=== PATIENT | male | born 1940 | race Caucasian/White ===

== ENCOUNTER 2020-05-08 14:19 | Outpatient (CLI) | payer MEDICARE, OTHER, SELFPAY ==
--- NOTE | ~2020-05-08 | CT_ITS ---
EXAMINATION: CT abdomen pelvis w con DATE: 05/08/2020 15:45 INDICATION: Abdominal pain. Diarrhea. TECHNIQUE: Computed tomography (CT) of the abdomen and pelvis was performed with 100 mL Omnipaque 350 intravenous contrast. Automated exposure control and iterative reconstruction technique were employe d. The dose-length product was 1072.26 mGy-cm. COMPARISON: Chest CT 10/14/2012 FINDINGS: The visualized portions of the lung bases demonstrate mild atelectasis. No pleural effusion . The heart size is normal. There are coronary artery calcifications. No pericardial effusion. There are cysts in the liver measuring up to 12 mm. The gallbladder, spleen, and adrenal glands are normal. There is a chronic 11 mm hyperenhancing mass in the tail of the pancreas, likely an accessory spleen . Right kidney is normal. There is a chronic 7 mm mass in the left kidney, likely benign. There are c hanges of prostatectomy and pelvic lymph node dissection. There is diverticulosis of the colon withou t evidence of diverticulitis. The appendix is not visualized. 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 There are no pathologically enlarged lymph nodes. There is no free intraperitoneal fluid. There is moderate thoracal lumbar spondylosis. IMPRESSION: 1. 5.1 cm saccular aneurysm of infrarenal aorta. Surgical consultation is recommended. Reviewed, dictated and finalized at location A. IMPRESSION: 1. 5.1 cm saccular aneurysm of infrarenal aorta. Surgical consultation is recom mended.
[2020-05-08 14:53] LABS: Basophils Percent Auto 0.7 % (0.2-1.2); Eosinophils Absolute Auto 0.2 K/mm3 (0-0.3); Eosinophils Percent Auto 3.3 % (0-4.4); Hematocrit 47.1 % (42.0-52.0); Hemoglobin 15.4 g/dL (14.0-18.0); Immature Granulocyte Absolute 0.01 K/mm3 (0.00-0.031); Immature Granulocyte Percent A 0.2 % (0-0.5); Lymphocytes Absolute Auto 1.03 K/mm3 (0.9-3.2); Lymphocytes Percent Auto 22.8 % (18.3-44.2); Mean Corpuscular HGB Conc 32.7 g/dl (32-36); Mean Corpuscular Hemoglobin 29.6 pg (26-34); Mean Corpuscular Volume 90.6 fl (80-100); Mean Platelet Volume 10.2 fl (7.4-10.4); Monocytes Absolute Auto 0.7 K/mm3 (0.1-0.6); Neutrophils Absolute Auto 2.6 K/mm3 (1.3-6.7); Platelet Count Result 186 k/mm3 (150-375); Red Cell Distribution Width 12.5 % (11.5-14.5); White Blood Count 4.5 K/mm3 (4.5-10.0)
[2020-05-08 15:07] LABS: Alanine Aminotransferase 34 U/L (4-50); Albumin Level 4.4 g/dL (3.5-5.1); Alkaline Phosphatase 59 U/L (38-126); Aspartate Amino Transferase 26 U/L (17-59); Bilirubin,Total 0.4 mg/dL (0.2-1.3); Blood Urea Nitrogen 15 mg/dL (9-20); Calcium 9.1 mg/dL (8.4-10.2); Carbon Dioxide 25 mmol/L (22-30); Chloride 105 mmol/L (98-107); Estimated Glomerular Filt Rate > 60; Glucose 104 mg/dL (75-110); Potassium 4.3 mmol/L (3.4-5.0); Sodium 138 mmol/L (137-145)
== END 2020-05-08 14:20 | disposition home or self-care (01) ==
LOC: ANHIMG 14:22
PROVIDERS: PCP Internal Medicine; Visit Provider Internal Medicine
DX: R19.7 Diarrhea, unspecified (principal); R10.9 Unspecified abdominal pain
CPT/HCPCS: 36415; 74177; 80053; 85025; Q9967

== ENCOUNTER 2020-05-10 10:12 | Outpatient (CLI) | payer MEDICARE, OTHER, SELFPAY | END 2020-05-10 10:13 | disposition home or self-care (01) | PROVIDERS: PCP Internal Medicine; Visit Provider Internal Medicine | DX: R19.7 Diarrhea, unspecified (principal) | CPT/HCPCS: 87045; 87046; 87177; 87209; 87324; 87427; 89055 ==

== ENCOUNTER 2021-01-28 09:34 | Outpatient (CLI) | payer MEDICARE, SELFPAY ==
--- NOTE | ~2021-01-28 | US_ITS ---
US abdomen limited DATE: 01/28/2021 10:49 INDICATION: Pancreatic cyst. Kidney cyst. TECHNIQUE: Real-time imaging of liver, pancreas, gallbladder areas COMPARISON: 05/08/2020 CT abdomen pelvis FINDINGS: A chronic 11 mm hyperenhancing mass was reported in the tail of the pancreas on the 05/08/20 CT abdomen pelvis examination. No pancreatic mass lesion or cyst is detected sonographically. Consider pancreatic AP examination wit h IV contrast material and comparison to 05/08/2020 CT abdomen examination. No hepatic space-occupying mass lesion. Normal hepatopedal portal venous flow direction. No gallstones, gallbladder wall thickening or abnormal pericholecystic fluid collection is detected. Negative sonographic Burciaga's sign. IMPRESSION: No significant abnormality Consider repeat CT pancreas examination with IV contrast material and comparison to the 05/08/2020 CT abdomen pelvis examination which revealed a reported chronic 11 mm hyperenhancing mass Reviewed, dictated and finalized at Location A. Reviewed, dictated and finalized at location A. IMPRESSION: No significant abnormality Consider repeat CT pancreas examination with IV contrast material and compariso n to the 05/08/2020 CT abdomen pelvis examination which revealed a reported tailer out yady 11 mm hyperenhancing mass
--- NOTE | ~2021-01-28 | US_ITS ---
US renal BI DATE: 01/28/2021 10:49 INDICATION: Kidney cyst TECHNIQUE: Real-time imaging of kidneys and urinary bladder COMPARISON: 05/08/2020 CT abdomen pelvis FINDINGS: The right kidney measures approximately 11.2 cm length, the left kidney approximately 11.8 cm length. No hydronephrosis of either kidney. 1.2 x 1 x 2 centimeter left parapelvic renal cyst. The urinary bladder is unremarkable. IMPRESSION: 1.2 x 1 x 2 centimeter left parapelvic renal cyst Reviewed, dictated and finalized at Location A. Reviewed, dictated and finalized at location A.
== END 2021-01-28 09:35 | disposition home or self-care (01) ==
PROVIDERS: PCP Internal Medicine; Visit Provider Internal Medicine
DX: N28.1 Cyst of kidney, acquired (principal); K86.2 Cyst of pancreas
CPT/HCPCS: 76705; 76775

== ENCOUNTER 2021-08-27 13:57 | Outpatient (CLI) | payer MEDICARE, SELFPAY ==
--- NOTE | ~2021-08-27 | US_ITS ---
EXAMINATION: US arterial ankle brachial ind DATE: 08/27/2021 14:39 INDICATION: Peripheral arterial disease TECHNIQUE: Segmental pressures and plethysmographic and Doppler waveforms of the brachial and lower e xtremity arteries were obtained. COMPARISON: None. FINDINGS: Right and left brachial artery pressures of 146 mm Hg and 144 mm Hg, respectively, are concordant (no rmal difference <= 30 mmHg). The right ankle-brachial index (CRISTIAN) is 1.27 (normal >= 0.9-1.0). The right great toe-brachial index (TBI) is 0.93 (normal >= 0.65). Arterial Doppler waveforms are biphasic at the posterior tibial arter y and low amplitude and monophasic at the dorsalis pedis artery. The left CRISTIAN is 1.27. The left TBI is 0.69. Arterial Doppler waveforms are biphasic at the left poste rior tibial artery and low amplitude monophasic at the dorsalis pedis artery. IMPRESSION: Normal bilateral CRISTIAN and TBI Reviewed, dictated and finalized at Location A. Reviewed, dictated and finalized at location A.
== END 2021-08-27 13:58 | disposition home or self-care (01) ==
LOC: ANHIMG 14:02
PROVIDERS: PCP Internal Medicine; Visit Provider Internal Medicine
DX: R09.89 Other specified symptoms and signs involving the circulatory and respiratory systems (principal)
CPT/HCPCS: 93922

== ENCOUNTER 2022-02-21 12:18 | Outpatient (CLI) | payer MEDICARE, SELFPAY ==
--- NOTE | ~2022-02-21 | PE_ITS ---
EXAMINATION: PET skull to mid thigh DATE: 02/21/2022 15:00 INDICATION: Solitary pulmonary nodule TECHNIQUE: Blood glucose level was 102 mg/dL. 10.71 mCi of 18-fluorodeoxyglucose (18-FDG) was adminis tered i.v. Low dose computed tomography (CT) images were acquired from the base of the brain to the p roximal thighs for attenuation correction and anatomic localization. Positron emission tomography (PE T) images were acquired in the same distribution beginning 106 minutes after injection. Images includ ing fused PET/CT images were reconstructed in axial, coronal, and sagittal planes. Automated exposure control technique was employed. The dose-length product was 922.62mGy-cm. COMPARISON: CT abdomen and pelvis dated 05/08/2020 FINDINGS: Head/neck: There is symmetric increased activity in the oral cavity, palatine tonsils, laryngeal muscles and ocu lar muscles without CT correlate, likely physiologic. Atherosclerotic calcification at the bilateral carotid bulbs. No pathologically enlarged cervical lymphadenopathy or suspicious foci of increased FD G uptake in the visualized head or neck. Chest: Unchanged discoid atelectasis/scarring along the posterior lingula. There is pleural thickening and i ncreased subpleural fat with stable appearance of associated round atelectasis in the lateral basilar segment of the right lower lobe which is without corresponding FDG uptake. There is also no FDG upta ke associated with a 12 mm nodule at the posterior basilar segment of the right lower lobe. 3 mm and 5 mm para fissural nodules in the superior segment of the left lower lobe without evident FDG uptake. There is mild FDG uptake with maximal SUV of 3.2 at the right hilum likely related to a lymph node s ituated amongst and unable to be discreetly distinguish from the surrounding pulmonary vasculature. A dditional increased uptake with maximal SUV of 4.3 associated with a mediastinal lymph node situated posterior to the right main pulmonary artery into the right of the esophagus which measures 8 mm in m aximal short axis diameter which is normal. No other pathologically enlarged or FDG avid thoracic lym phadenopathy. Cardiomegaly. Atherosclerotic coronary artery calcification. Enlargement of the central pulmonary arteries consistent with pulmonary arterial hypertension. Thoracic aorta is normal in sandy hellen. Abdomen/pelvis/proximal thighs: Physiologic renal accumulation and excretion of FDG activity in the kidneys, bladder and along portio ns of ureters. 1.3 cm cyst at the caudate lobe of the liver. Normal degree and heterogenous pattern o f increased uptake throughout the liver without radiologic correlate or dominant FDG avid lesion. The gallbladder, spleen and bilateral adrenal glands are normal. Diffuse mild fatty atrophy of the pancr eas. There is mild colonic diverticulosis with a sigmoid predominance. There is no adjacent inflammat ory change to suggest diverticulitis. Mild uptake scattered throughout the bowels without radiologic correlate, also likely physiologic. No other abnormal foci of increased FDG uptake or pathologically enlarged lymphadenopathy in the abdomen, pelvis or proximal thighs. Mild aortobiiliac endoluminal michela nt spanning an unchanged 5.1 x 3.7 cm saccular aneurysm extending left posteriorly from the aortic bi furcation. Postoperative changes and pelvis prior prostatectomy and bilateral pelvic lymph node disse ction. Musculoskeletal: Moderate cervical, thoracic and lumbar spondylosis with bridging osteophytes at multiple levels in th e thoracic and lumbar spine consistent with diffuse idiopathic skeletal hyperostosis (DISH). No suspi cious lytic, blastic or FDG avid bone lesions. IMPRESSION: 1. No abnormal FDG uptake associated with a new 12 mm right lower lobe nodule or of a couple 3 and 5 mm left lower lobe nodules. While reassuring would recommend six-month follow-up chest CT. 2. No FDG u
[2022-02-21 12:35] LABS: Glucose Point of Care 102 mg/dl (65-105)
== END 2022-02-21 12:19 | disposition home or self-care (01) ==
LOC: ANHIMG 12:19
PROVIDERS: PCP Internal Medicine; Visit Provider Internal Medicine
DX: R91.1 Solitary pulmonary nodule (principal)
CPT/HCPCS: 78815; A9552

== ENCOUNTER 2022-08-27 10:19 | Outpatient (CLI) | payer MEDICARE, SELFPAY ==
--- NOTE | ~2022-08-27 | CT_ITS ---
EXAMINATION:CT diagnostic chest w con DATE: 08/27/2022 10:44 INDICATION: Pulmonary nodule. TECHNIQUE: Computed tomography (CT) of the chest was performed with 75 mL Omnipaque 350 intravenous c ontrast. Automated exposure control and iterative reconstruction technique were employed. The dose-le ngth product (DLP) was 384.66 mGy-cm. COMPARISON: PET CT 02/21/2022, chest CT 10/14/2012 FINDINGS: There is mild bronchiectasis in the inferior lungs. There is mild atelectasis in the inferi or lungs. There is a 13 mm nodule in right lower lobe containing fat, consistent with a hamartoma. Th ere is a 5 mm nodule in right lower lobe, stable from 10/14/2012, likely benign. No pleural effusion. Cardiomegaly is noted. There are coronary artery calcifications. No pericardial effusion. There is a 12 mm cyst in the liver. There is a stent graft in abdominal aorta. There is severe cervical spondyl osis. There are bridging endplate osteophytes at multiple levels in the thoracic spine, consistent wi th diffuse idiopathic skeletal hyperostosis (DISH). IMPRESSION: 1. 13 mm right lower lobe pulmonary nodule containing fat, stable from 02/21/2022 and without increase d activity on prior PET, consistent with a hamartoma. Reviewed, dictated and finalized at location A. IMPRESSION: 1. 13 mm right lower lobe pulmonary nodule containing fat, stable from 2 and without increased activity on prior PET, consistent with a hamartoma.
[2022-08-27 10:39] LABS: Estimated Glomerular Filt Rate > 60
== END 2022-08-27 10:20 | disposition home or self-care (01) ==
PROVIDERS: PCP Internal Medicine; Visit Provider Internal Medicine
DX: R91.1 Solitary pulmonary nodule (principal)
CPT/HCPCS: 71260; Q9967

== ENCOUNTER 2022-11-26 14:07 | Outpatient (CLI) | payer MEDICARE, SELFPAY ==
--- NOTE | ~2022-11-26 | US_ITS ---
EXAMINATION: US arterial ankle brachial ind DATE: 11/26/2022 14:48 INDICATION: Decreased pedal pulses TECHNIQUE: Segmental pressures and plethysmographic and Doppler waveforms of the brachial and lower e xtremity arteries were obtained. COMPARISON: None. FINDINGS: Right and left brachial artery pressures of 175 mm Hg and 161 mm Hg, respectively, are concordant (no rmal difference <= 30 mmHg). The right ankle-brachial index (CRISTIAN) is 0.96 (normal >= 0.9-1.0). The right great toe-brachial index (TBI) is 0.63 (normal >= 0.65). Arterial Doppler waveforms are biphasic with brisk systolic upstrokes at both right posterior tibial and dorsalis pedis arteries. The left CRISTIAN is 0.90. The left TBI is 0.41. Arterial Doppler waveforms are biphasic with brisk systol ic upstrokes at both left posterior tibial and dorsalis pedis arteries. IMPRESSION: 1. Arterial occlusive disease to bilateral lower limbs with borderline right CRISTIAN and TBI and borderli ne left CRISTIAN and mildly decreased left TBI. Reviewed, dictated and finalized at location A. ESHER IMPRESSION: 1. Arterial occlusive disease to bilateral lower limbs with borderline right AB I and TBI and borderline left CRISTIAN and mildly decreased left TBI.
== END 2022-11-26 14:08 | disposition home or self-care (01) ==
PROVIDERS: PCP Internal Medicine; Visit Provider Orthopaedic Surgery
DX: R09.89 Other specified symptoms and signs involving the circulatory and respiratory systems (principal); I70.203 Unspecified atherosclerosis of native arteries of extremities, bilateral legs
CPT/HCPCS: 93922

== ENCOUNTER 2022-11-28 11:23 | Outpatient (CLI) | payer MEDICARE, SELFPAY ==
--- NOTE | 2022-11-28 11:47 | ECG_ITS ---
Measurements Intervals Powell Rate: 57 P: 44 WY: 248 QRS: 14 QRSD: 109 T: 34 QT: 427 QTc: 417 Interpretive Statements SINUS BRADYCARDIA WITH FIRST DEGREE AV BLOCK LEFT VENTRICULAR HYPERTROPHY ABNORMAL ECG NO PREVIOUS ECG AVAILABLE FOR COMPARISON Electronically Signed On 11-28-2022 14:01:37 REFRIGERATOR REPAIR TECHNICIAN by Jason Alexis M.D.
== END 2022-11-28 11:24 | disposition home or self-care (01) ==
PROVIDERS: PCP Internal Medicine; Visit Provider Surgery
DX: I10 Essential (primary) hypertension (principal); Z01.818 Encounter for other preprocedural examination; I44.0 Atrioventricular block, first degree
CPT/HCPCS: 93005

== ENCOUNTER 2022-11-29 02:06 | Day surgery (SDC) | payer MEDICARE, SELFPAY ==
[2022-11-27 14:42] VITALS: BMI 30.7
--- NOTE | 2022-11-27 14:56 | PC.NURSE ---
PRE-OP INSTRUCTIONS, PLEASE READ CAREFULLY Report to the Outpatient Waiting Room, entrance under the green pavilion located off [facility], at time _0930_ on date _11/29/22_. Planned Procedure Time: _1130_. Time changes happen often and if your time is changed the preop area will call you the afternoon before. - You and your visitor will be asked to self-screen and do not enter if you have any COVID symptoms. - Only one visitor is requested with a max of two and NO children visitors are allowed at this time. - The patient visitor may be requested to leave or wait in car when not with patient due to distancing restrictions. - A mask is optional within the hospital at this time. Patients may have clear liquids (water, carbonated beverages, clear teas, apple juice) until 3 hours prior to surgery (0830 AM) with a maximum of 20 ounces. - No food from midnight until time of surgery Take the following medications with a SIP of water the morning of surgery: _BUPROPION, VERAPAMIL, TYLENOL IF NEEDED_ DO NOT STOP ANY OF YOUR OTHER PRESCRIPTION MEDICATIONS PRIOR TO SURGERY ?EXCEPT THE FOLLOWING Medications to discontinue per ANESTHESIA - _OMEGA 3, PRESERVISION OF TODAY, Date to take last dose 11/27/22_ Please no make-up, nail albanian, hairspray, perfume, deodorant, or body powder the day of surgery. No jewelry (including any body piercings) or valuables the day of surgery, leave them at home. Please take a shower or bath the night before, or the morning of, surgery with an antibacterial soap. Wear comfortable, loose fitting clothing. - Jewelry must be removed prior to entering the operating room. Rings and piercings that are not removed may be cut off. - The hospital will not accept responsibility for valuables. - Please leave all valuables, including medications, at home the day of surgery. If you are going home after surgery, a licensed day haul or farm charter bus driver must drive you home. - NO public transportation without another adult if you receive anesthesia. - We recommend that an adult stay with you for 24 hours following discharge. - We also recommend that you do not drive, make important decision, drink alcoholic beverages, or take any drugs that were not prescribed by your health care provider for at least 24 hours after your discharge time. Follow any additional instructions given to you from your surgeon. If you or anyone in your household have experienced Covid symptoms in the past week, please notify your surgeon or the nurse liaison at the phone number below for possible testing. Telephone instructions given to _PATIENT_and asked if any additional questions and then verbalized understanding. Patient advised to call surgeon office or pre surgery nurse liaison [phone] if any additional questions.
[2022-11-29] MEDS: LACTATED RINGERS 1,000 ML 30 ML IV CONT (10:00)
[2022-11-29 10:25] VITALS: BP 159/74; PULSE 64; RESP 16; TEMP 36.2; O2SAT 98
[2022-11-29] MEDS: ACETAMINOPHEN 500 MG TABLET 1000 MG PO (10:30)
[2022-11-29] MEDS: KETOROLAC 15 MG/ML VIAL (*BKC) IV PUSH (10:30)
--- NOTE | 2022-11-29 10:41 | WPDHPUPDATE1 ---
History and Physical Update Update Date/Time: 11/29/22 10:41 History and Physical has been reviewed, including an updated exam of the patient. There are NO changes in the patient's condition. Risks, benefits, and alternatives have been discussed and questions answered. Patient agrees to proceed with procedure.
--- NOTE | 2022-11-29 10:50 | WPDANESEPPF ---
Anes - Initial Pre Proc Eval Procedure: Operation Date: 11/29/22 11:30 Proposed Procedures p Rectal Exam Under Anesthesia, Hemorrhoidectomy - Kimberly Gonsalez MD Date/Time: 11/29/22 10:50 Surgeon: Kimberly Gonsalez MD Pre Op Diagnosis: thrombosed external hemorrhoid Patient Data Age: 81 Gender: M Height: 1.8 m Weight: 99.1 kg Last Vital Signs Temp 36.2 C L 11/29/22 10:25 Pulse 64 11/29/22 10:25 Resp 16 11/29/22 10:25 BP 159/74 H 11/29/22 10:25 Pulse Ox 98 11/29/22 10:25 O2 Del Method Room Air 11/29/22 10:25 Allergies Allergy/AdvReac Type Severity Reaction Status Date / Time shrimp Allergy Vomiting Verified 11/29/22 10:26 Home Medications Medication Instructions Recorded Confirmed Type aspirin 81 mg tablet,delayed 81 mg PO DAILY 10/14/19 11/27/22 History release (Adult Low Dose Aspirin) vit C 250 mg-vit E 90 mg-zinc 40 1 tablet PO BID 10/14/19 11/27/22 History mg-copper 1 dl-[id number] capsule (PreserVision AREDS-2) cholecalciferol (vitamin D3) 25 25 mcg PO DAILY 06/06/20 11/27/22 History mcg (1,000 unit) capsule calcium carbonate 600 mg-vitamin 1 tablet PO DAILY 12/20/20 11/27/22 History D3 20 mcg (800 unit) chewable tablet (Caltrate 600 plus D) primidone 50 mg tablet See Rx Instructions .Route 10/29/21 11/27/22 Rx .COMPLEX #540 tabs atorvastatin 20 mg tablet See Rx Instructions .Route 01/22/22 11/27/22 Rx .COMPLEX #90 tabs trandolapril 4 mg tablet See Rx Instructions .Route 01/22/22 11/27/22 Rx .COMPLEX #90 tabs bupropion HCl 150 mg 24 hr tablet, See Rx Instructions .Route 08/12/22 11/29/22 Rx extended release .COMPLEX #90 tabs omega-3 fatty acids 1,000 mg 2,000 mg PO BID 10/14/22 11/27/22 History capsule (Fish Oil Concentrate) verapamil 240 mg tablet,extended See Rx Instructions .Route 11/20/22 11/29/22 Rx release .COMPLEX #180 tabs acetaminophen 500 mg tablet 500 mg PO TID PRN Pain 11/27/22 11/29/22 History hydrocortisone 2.5 % topical cream 1 applic RECTAL DAILY PRN 11/27/22 11/27/22 Rx with perineal applicator hemorrhoids #30 grams (Anusol-HC) Patient hx anesthesia problems: none Family hx anesthesia problems: none Results Review: All pre-operative results and documents have been reviewed as part of the pre-operative evaluation. [facility] Past Medical History Medical History Abdominal pain Benign essential hypertension Blackhead BMI 30.0-30.9,adult BMI 31.0-31.9,adult BMI 33.0-33.9,adult BMI 34.0-34.9,adult Branch retinal artery occlusion of both eyes Chest pain COPD (chronic obstructive pulmonary disease) Decreased pedal pulses Degenerative arthritis of knee, bilateral DJD (degenerative joint disease), multiple sites Double vision Encounter for Medicare annual wellness exam Encounter for routine adult health examination without abnormal findings History of abdominal aortic aneurysm (AAA) History of prostate cancer Hx of TIA (transient ischemic attack) and stroke Hyperglycemia, unspecified Hyperlipidemia Lung nodule On senior care drug therapy Resting tremor Thrombosed hemorrhoids Tremor Vitamin B12 deficiency Vitamin D deficiency Surgical History Surgical History AAA (abdominal aortic aneurysm) Treated with graft in 2020 History of heart artery stent History of prostate surgery 1999 Family History Family History Father Family history of coronary artery disease Family history of malignant neoplasm of urinary bladder Grandparent Family history of coronary artery disease Social History Social History Smoking packs per day: 2 Smoking cigarettes per day: 40.0 Years smoked: 30 Smoking pack-years: 60.00 Smoking status: Former smoker Tobacco type: cigarettes Second hand tobacco
[2022-11-29] MEDS: ceFAZolin 2 GM/D5W 50 ML 2 GM/50 ML BAG IVPB (11:41)
[2022-11-29] MEDS: LIDOCAINE HCL 1% PF 30 ML VIAL INFILTRATE (12:04)
[2022-11-29 12:10] VITALS: BP 98/57; PULSE 51; RESP 14; O2SAT 98
--- NOTE | 2022-11-29 12:10 | W.PM.PROC2 ---
Procedure Note - Detailed Date of Procedure 11/29/22 Pre-op Diagnosis thrombosed external hemorrhoids Post-op Diagnosis Same Procedure Performed Exam under anesthesia, external hemorrhoidectomy involving left lateral and right anterior positions Surgeon Kimberly Gonsalez MD Anesthesia MAC and Local Indications 81 y/o M c multiple thrombosed external hemorrhoids refractory to conservative measures. Findings multiple thromabosed external hemorrhoids predominately in L lateral and R anterior Description of Procedure The patient was taken to the operating room and placed in the modified lithotomy position. After adequate induction of general anesthesia, the patient was prepped and draped in the normal sterile fashion. A time-out was then done to verify the patient's identity, as well as the procedure being performed. I began by doing a digital exam. There was noted to be multiple external hemorrhoids, however no internal hemorrhoids were noted. At this point, a bilateral pudendal block was done. Then used the lone Star retractor to further evaluate the anal canal as well as rectum, other than external hemorrhoids no other pathology was noted. I then began excising the external hemorrhoids using the hand-held LigaSure device. The hemorrhoids were noted to be in the left lateral and right anterior positions. The largest thrombosed hemorrhoid was in the left lateral column. Two smaller thrombosed hemorrhoids were excised from the R anterior column using the LigaSure. The specimens will be sent to pathology for further review. Hemostasis was noted at all excision sites. I then placed lidocaine jelly into the rectal vault. The patient tolerated the procedure and was alert and awake in the operating room postop. He will be transferred to the recovery room in stable condition. Implants lidocaine jelly in the rectal vault Estimated Blood Loss 5 Drains No Packing Yes Pathology Yes Complications No immediate complications Condition Stable Disposition PACU [facility] Billing Surgery - Charge Forward: Surgery Billing
[2022-11-29 12:40] VITALS: BP 130/63; PULSE 52; RESP 18; O2SAT 96
[2022-11-29 13:10] VITALS: BP 155/73; PULSE 52; RESP 16
[2022-11-29 13:33] VITALS: BP 162/75; PULSE 52
[2022-11-29 14:00] VITALS: BP 160/80; PULSE 51; RESP 16
== END 2022-11-29 14:10 | disposition home or self-care (01) ==
PROVIDERS: PCP Internal Medicine; Visit Provider Surgery
PROC: (CPT 46320; principal; 2022-11-29 11:30)
DX: K64.5 Perianal venous thrombosis (principal); I10 Essential (primary) hypertension; J44.9 Chronic obstructive pulmonary disease, unspecified; E78.5 Hyperlipidemia, unspecified; E55.9 Vitamin D deficiency, unspecified; E53.8 Deficiency of other specified B group vitamins; Z86.73 Personal history of transient ischemic attack (TIA), and cerebral infarction without residual deficits; Z85.46 Personal history of malignant neoplasm of prostate; Z79.82 Long term (current) use of aspirin; Z95.5 Presence of coronary angioplasty implant and graft; Z87.891 Personal history of nicotine dependence; E66.9 Obesity, unspecified; Z68.30 Body mass index [BMI] 30.0-30.9, adult
CPT/HCPCS: 46320 ×2; 88304; A9270; J0690; J1885; J2704; J3010; J7120

== ENCOUNTER 2023-03-10 14:26 | Outpatient (CLI) | payer MEDICARE, SELFPAY ==
[2023-03-10 14:51] LABS: Basophils Percent Auto 0.7 % (0.2-1.2); Eosinophils Absolute Auto 0.5 K/mm3 (0-0.3); Eosinophils Percent Auto 9.2 % (0-4.4); Hematocrit 43.6 % (42.0-52.0); Hemoglobin 14.7 g/dL (14.0-18.0); Immature Granulocyte Absolute 0.01 K/mm3 (0.00-0.031); Immature Granulocyte Percent A 0.2 % (0-0.5); Lymphocytes Absolute Auto 1.62 K/mm3 (0.9-3.2); Lymphocytes Percent Auto 29.9 % (18.3-44.2); Mean Corpuscular HGB Conc 33.7 g/dl (32-36); Mean Corpuscular Hemoglobin 30.8 pg (26-34); Mean Corpuscular Volume 91.4 fl (80-100); Mean Platelet Volume 9.9 fl (7.4-10.4); Monocytes Absolute Auto 0.6 K/mm3 (0.1-0.6); Monocytes Percent Auto 11.3 % (2.6-8.5); Neutrophils Absolute Auto 2.6 K/mm3 (1.3-6.7); Neutrophils Percent Auto 48.7 % (45.5-73.1); Platelet Count Result 174 k/mm3 (150-375); Red Blood Count 4.77 M/mm3 (4.6-6.20); Red Cell Distribution Width 13.2 % (11.5-14.5); White Blood Count 5.4 K/mm3 (4.5-10.0)
[2023-03-10 15:08] LABS: Prothrombin Time 13.1 Seconds (11.1-14.7)
== END 2023-03-10 14:27 | disposition home or self-care (01) ==
LOC: ANHLAB 14:27
PROVIDERS: PCP Internal Medicine; Visit Provider Internal Medicine
DX: K62.5 Hemorrhage of anus and rectum (principal)
CPT/HCPCS: 36415; 85025; 85610

== ENCOUNTER 2023-03-21 00:55 | Day surgery (SDC) | payer MEDICARE, SELFPAY ==
[2023-03-14 13:06] VITALS: BMI 30.1
[2023-03-21 12:38] VITALS: BP 150/80; PULSE 63; RESP 16; TEMP 36.1; O2SAT 97
--- NOTE | 2023-03-21 12:40 | PM.HPGS ---
History of Present Illness History of Present Illness Consent: Risks, benefits, and alternatives have been discussed and questions answered. Patient agrees to proceed with procedure. Chief complaint: hemorrhage of anus and rectum Narrative: Connor Chin is a 82 year old male Presents for colonoscopy. Patient has had continued bleeding from the rectum. Patient initially presented in November with rectal bleeding. Apparently found to have a thrombosed hemorrhoid which underwent surgical therapy. After that was accomplished patient is continued to have intermittent bright red blood per rectum. Occasional pain and discomfort. He initially was treated with fiber stool softeners in his resume this currently takes Metamucil 2 times a day. Supplements this with 2 cassettes and stool softeners. This has helped his bowel habits. Because of ongoing rectal bleeding he is referred today for colonoscopy to exclude any additional lesions. Family history noncontributory. Review of Systems Review of Systems: Review of systems noncontributory. [facility] Past Medical History Medical History (Updated 03/10/23 @ 14:00 by Rosi Harris RADIOLOGY MANAGER) Abdominal pain Benign essential hypertension Blackhead BMI 30.0-30.9,adult BMI 31.0-31.9,adult BMI 33.0-33.9,adult BMI 34.0-34.9,adult Branch retinal artery occlusion of both eyes BRBPR (bright red blood per rectum) Chest pain COPD (chronic obstructive pulmonary disease) Decreased pedal pulses Degenerative arthritis of knee, bilateral DJD (degenerative joint disease), multiple sites Double vision Encounter for Medicare annual wellness exam Encounter for routine adult health examination without abnormal findings History of abdominal aortic aneurysm (AAA) History of prostate cancer Hx of TIA (transient ischemic attack) and stroke Hyperglycemia, unspecified Hyperlipidemia Lung nodule On usp drug therapy Resting tremor Thrombosed hemorrhoids Tremor Vitamin B12 deficiency Vitamin D deficiency Surgical History Surgical History (Updated 03/10/23 @ 14:03 by Rosi Harris CMA) AAA (abdominal aortic aneurysm) Treated with graft in 2020 History of heart artery stent History of prostate surgery 1999 S/P hemorrhoidectomy Exam under anesthesia, external hemorrhoidectomy involving left lateral and right anterior positions 11/29/22 Family History Family History Father Family history of coronary artery disease Family history of malignant neoplasm of urinary bladder Grandparent Family history of coronary artery disease Social History Social History Smoking packs per day: 1 Smoking cigarettes per day: 20.0 Years smoked: 30 Smoking pack-years: 30.00 Smoking status: Former smoker Tobacco type: cigarettes, pipe and cigars Smokeless tobacco user: chewing tobacco Second hand tobacco smoke exposure: No Smoking end date: 10/27/04 Additional smoking assessment comments: Quit 15 years ago Alcohol intake: current Drinks per week: 14 Alcohol use details: on occasion Substance use: never Substance use type: does not use Lack of Transportation: No Lack of Food: Never True Current Housing: I Have Housing Concerned About Future Housing: No Difficulty Paying Gas/Electric Bills: No Difficulty Paying for Meds: No Currently Unemployed: No Education: High School Diploma/GED Difficulty w/ Childcare or Family Care: No Living arrangements: with family Additional living arrangements comments: Occupation/Education: retired Gender identity (if verbalized by the patient): Male Spiritual care concerns: No Meds Home Medications and Allergies Home Medications Medication Instructions Recorded Confirmed Type aspirin 81 mg tablet,delayed 81 mg PO DAILY 10/14/19 03/21/23 History release (Adult Low Dose Aspirin) vit C 25
[2023-03-21] MEDS: LACTATED RINGERS 1,000 ML 150 ML IV CONT (12:52)
--- NOTE | 2023-03-21 13:25 | WPDANESEPPF ---
Anes - Initial Pre Proc Eval Procedure: Operation Date: 03/21/23 13:45 Proposed Procedures p Colonoscopy - Zeke Singh MD Date/Time: 03/21/23 13:25 Surgeon: Zeke Singh MD Pre Op Diagnosis: hemorrhage of anus and rectum Patient Data Age: 82 Gender: M Height: 1.8 m Weight: 99.4 kg Last Vital Signs Temp 97.0 F L 03/21/23 12:38 Pulse 63 03/21/23 12:38 Resp 16 03/21/23 12:38 BP 150/80 H 03/21/23 12:38 Pulse Ox 97 03/21/23 12:38 O2 Del Method Room Air 03/21/23 12:38 Allergies Allergy/AdvReac Type Severity Reaction Status Date / Time shrimp Allergy Vomiting Verified 03/21/23 12:34 Home Medications Medication Instructions Recorded Confirmed Type aspirin 81 mg tablet,delayed 81 mg PO DAILY 10/14/19 03/21/23 History release (Adult Low Dose Aspirin) vit C 250 mg-vit E 90 mg-zinc 40 1 tablet PO BID 10/14/19 03/21/23 History mg-copper 1 [id number] capsule (PreserVision AREDS-2) cholecalciferol (vitamin D3) 25 25 mcg PO DAILY 06/06/20 03/21/23 History mcg (1,000 unit) capsule calcium carbonate 600 mg-vitamin 1 tablet PO DAILY 12/20/20 03/21/23 History D3 20 mcg (800 unit) chewable tablet (Caltrate 600 plus D) atorvastatin 20 mg tablet See Rx Instructions .Route 01/22/22 03/21/23 Rx .COMPLEX #90 tabs omega-3 fatty acids 1,000 mg 2,000 mg PO BID 10/14/22 03/21/23 History capsule (Fish Oil Concentrate) verapamil 240 mg tablet,extended See Rx Instructions .Route 11/20/22 03/21/23 Rx release .COMPLEX #180 tabs docusate sodium 100 mg capsule 100 mg PO BID #60 caps 12/31/22 03/21/23 Rx (Colace) bupropion HCl 150 mg 24 hr tablet, See Rx Instructions .Route 01/01/23 03/21/23 Rx extended release .COMPLEX #90 tabs trandolapril 4 mg tablet See Rx Instructions .Route 01/29/23 03/21/23 Rx .COMPLEX #90 tabs primidone 50 mg tablet See Rx Instructions .Route 02/24/23 03/21/23 Rx .COMPLEX #540 tabs psyllium husk 3.4 gram/5.4 gram 2 tsp PO DAILY 03/10/23 03/21/23 History oral powder (Metamucil) Patient hx anesthesia problems: none Family hx anesthesia problems: none Results Review: All pre-operative results and documents have been reviewed as part of the pre-operative evaluation. [facility] Past Medical History Medical History (Updated 03/10/23 @ 14:00 by Rosi Harris CMA) Abdominal pain Benign essential hypertension Blackhead BMI 30.0-30.9,adult BMI 31.0-31.9,adult BMI 33.0-33.9,adult BMI 34.0-34.9,adult Branch retinal artery occlusion of both eyes BRBPR (bright red blood per rectum) Chest pain COPD (chronic obstructive pulmonary disease) Decreased pedal pulses Degenerative arthritis of knee, bilateral DJD (degenerative joint disease), multiple sites Double vision Encounter for Medicare annual wellness exam Encounter for routine adult health examination without abnormal findings History of abdominal aortic aneurysm (AAA) History of prostate cancer Hx of TIA (transient ischemic attack) and stroke Hyperglycemia, unspecified Hyperlipidemia Lung nodule On exterminator helper drug therapy Resting tremor Thrombosed hemorrhoids Tremor Vitamin B12 deficiency Vitamin D deficiency Surgical History Surgical History (Updated 03/10/23 @ 14:03 by Rosi Harris CMA) AAA (abdominal aortic aneurysm) Treated with graft in 2020 History of heart artery stent History of prostate surgery 1999 S/P hemorrhoidectomy Exam under anesthesia, external hemorrhoidectomy involving left lateral and right anterior positions 11/29/22 Family History Family History Father Family history of coronary artery disease Family history of malignant neoplasm of urinary bladder Grandparent Family history of coronary artery disease Social History Social History Smoking packs per day: 1 Smoking cigarettes per day: 20.0 Years smoked: 30 Smoking
[2023-03-21 14:57] VITALS: BP 119/59; PULSE 69; RESP 25; O2SAT 97
[2023-03-21 15:07] VITALS: BP 143/82; PULSE 60; RESP 21; O2SAT 97
[2023-03-21 15:17] VITALS: BP 140/80; PULSE 62; RESP 20; O2SAT 97
== END 2023-03-21 15:23 | disposition home or self-care (01) ==
PROVIDERS: PCP Internal Medicine; Visit Provider Internal Medicine Gastroenterology
PROC: 0DJD8ZZ Inspection of Lower Intestinal Tract, Via Natural or Artificial Opening Endoscopic (ICD-10-PCS; CPT 45378; principal; 2023-03-21 13:45)
DX: K62.5 Hemorrhage of anus and rectum (principal); K64.8 Other hemorrhoids; K64.4 Residual hemorrhoidal skin tags; K57.30 Diverticulosis of large intestine without perforation or abscess without bleeding; Z98.890 Other specified postprocedural states; Z87.19 Personal history of other diseases of the digestive system; Z87.891 Personal history of nicotine dependence; E78.5 Hyperlipidemia, unspecified; Z85.46 Personal history of malignant neoplasm of prostate; J44.9 Chronic obstructive pulmonary disease, unspecified; I10 Essential (primary) hypertension
CPT/HCPCS: 45378; J2001; J2704; J7120

== ENCOUNTER 2023-04-02 14:45 | Outpatient (CLI) | payer MEDICARE, SELFPAY ==
[2023-04-02 15:34] LABS: Basophils Percent Auto 0.7 % (0.2-1.2); Eosinophils Absolute Auto 0.3 K/mm3 (0-0.3); Eosinophils Percent Auto 5.1 % (0-4.4); Hematocrit 46.2 % (42.0-52.0); Hemoglobin 15.2 g/dL (14.0-18.0); Immature Granulocyte Absolute 0.02 K/mm3 (0.00-0.031); Immature Granulocyte Percent A 0.3 % (0-0.5); Lymphocytes Absolute Auto 1.62 K/mm3 (0.9-3.2); Lymphocytes Percent Auto 26.7 % (18.3-44.2); Mean Corpuscular HGB Conc 32.9 g/dl (32-36); Mean Corpuscular Hemoglobin 30.2 pg (26-34); Mean Corpuscular Volume 91.8 fl (80-100); Mean Platelet Volume 10.3 fl (7.4-10.4); Monocytes Absolute Auto 0.7 K/mm3 (0.1-0.6); Monocytes Percent Auto 10.7 % (2.6-8.5); Neutrophils Absolute Auto 3.4 K/mm3 (1.3-6.7); Neutrophils Percent Auto 56.5 % (45.5-73.1); Platelet Count Result 213 k/mm3 (150-375); Red Blood Count 5.03 M/mm3 (4.6-6.20); Red Cell Distribution Width 13.1 % (11.5-14.5); White Blood Count 6.1 K/mm3 (4.5-10.0)
[2023-04-02 15:47] LABS: Alanine Aminotransferase 23 U/L (6-50); Albumin Level 4.2 g/dL (3.5-5.1); Alkaline Phosphatase 64 U/L (38-126); Anion Gap 5 mmol/L (8-16); Aspartate Amino Transferase 21 U/L (17-59); Bilirubin,Total 0.3 mg/dL (0.2-1.3); Blood Urea Nitrogen 17 mg/dL (9-20); Carbon Dioxide 28 mmol/L (22-30); Chloride 107 mmol/L (98-107); Cholesterol 105 mg/dL (0-200); Estimated Glomerular Filt Rate > 60; Glucose 89 mg/dL (65-110); HDL Direct 46 mg/dL; Potassium 4.3 mmol/L (3.4-5.0); Sodium 140 mmol/L (137-145); Triglycerides 70 mg/dL (<150)
[2023-04-02 15:48] LABS: Hemoglobin A1C 5.1 % (<5.7)
[2023-04-02 15:59] LABS: LDL Cholesterol Direct 49 mg/dL
[2023-04-02 16:22] LABS: Vitamin D 25 Hydroxy 46.7 ng/mL
== END 2023-04-02 14:46 | disposition home or self-care (01) ==
LOC: ANHLAB 14:46
PROVIDERS: PCP Internal Medicine; Visit Provider Internal Medicine
DX: E55.9 Vitamin D deficiency, unspecified (principal); E78.2 Mixed hyperlipidemia; R73.9 Hyperglycemia, unspecified; I10 Essential (primary) hypertension; Z79.899 Other long term (current) drug therapy
CPT/HCPCS: 36415; 80053; 80061; 82306; 83036; 84439; 84443; 85025

== ENCOUNTER 2023-08-20 14:28 | Outpatient (CLI) | payer MEDICARE, SELFPAY ==
[2023-08-20 15:28] LABS: Alanine Aminotransferase 18 U/L (6-50); Alkaline Phosphatase 54 U/L (38-126); Anion Gap 5 mmol/L (8-16); Aspartate Amino Transferase 21 U/L (17-59); Bilirubin,Total 0.4 mg/dL (0.2-1.3); Blood Urea Nitrogen 19 mg/dL (9-20); Calcium 9.2 mg/dL (8.4-10.2); Carbon Dioxide 29 mmol/L (22-30); Chloride 107 mmol/L (98-107); Cholesterol 153 mg/dL (0-200); Estimated Glomerular Filt Rate > 60; Glucose 87 mg/dL (65-110); HDL Direct 42 mg/dL; Potassium 4.4 mmol/L (3.4-5.0); Sodium 141 mmol/L (137-145); Triglycerides 140 mg/dL (<150)
[2023-08-20 15:39] LABS: LDL Cholesterol Direct 91 mg/dL
== END 2023-08-20 14:29 | disposition home or self-care (01) ==
LOC: ANHLAB 14:30
PROVIDERS: PCP Internal Medicine; Visit Provider Internal Medicine
DX: E78.2 Mixed hyperlipidemia (principal); I10 Essential (primary) hypertension; E78.5 Hyperlipidemia, unspecified
CPT/HCPCS: 36415; 80053; 80061

== ENCOUNTER 2023-12-31 14:14 | Outpatient (CLI) | payer MEDICARE, SELFPAY ==
[2023-12-31 14:40] LABS: Basophils Percent Auto 0.9 % (0.2-1.2); Eosinophils Absolute Auto 0.3 K/mm3 (0-0.3); Eosinophils Percent Auto 5.3 % (0-4.4); Hematocrit 43.5 % (42.0-52.0); Hemoglobin 14.4 g/dL (14.0-18.0); Immature Granulocyte Absolute 0.02 K/mm3 (0.00-0.031); Immature Granulocyte Percent A 0.4 % (0-0.5); Lymphocytes Percent Auto 29.9 % (18.3-44.2); Mean Corpuscular HGB Conc 33.1 g/dl (32-36); Mean Corpuscular Volume 93.5 fl (80-100); Mean Platelet Volume 9.9 fl (7.4-10.4); Monocytes Absolute Auto 0.6 K/mm3 (0.1-0.6); Monocytes Percent Auto 13.5 % (2.6-8.5); Neutrophils Absolute Auto 2.3 K/mm3 (1.3-6.7); Platelet Count Result 175 k/mm3 (150-375); Red Blood Count 4.65 M/mm3 (4.6-6.20); Red Cell Distribution Width 12.6 % (11.5-14.5); White Blood Count 4.7 K/mm3 (4.5-10.0)
[2023-12-31 14:41] LABS: Appearance Urine Clear (Clear); Bilirubin Urine Negative (Negative); Blood Urine Negative (Negative); Color Urine Yellow (Yellow); Glucose Urine UA Negative (Negative); Ketones Urine Negative (Negative); Leukocyte Esterase Ur Negative LEU/UL (Negative); Nitrate Urine Negative (Negative); Protein Urine Negative (Negative); Specific Grav Ur 1.017 (1.001-1.035); Urobilinogen Urine 0.2 mg/dL (<2.0); pH Urine 5.5 (5.0-9.0)
[2023-12-31 14:51] LABS: Alanine Aminotransferase 19 U/L (6-50); Alkaline Phosphatase 55 U/L (38-126); Anion Gap 5 mmol/L (8-16); Aspartate Amino Transferase 18 U/L (17-59); Bilirubin,Total 0.4 mg/dL (0.2-1.3); Blood Urea Nitrogen 17 mg/dL (9-20); Calcium 9.2 mg/dL (8.4-10.2); Carbon Dioxide 27 mmol/L (22-30); Chloride 109 mmol/L (98-107); Cholesterol 132 mg/dL (0-200); Estimated Glomerular Filt Rate > 60; Glucose 106 mg/dL (65-110); HDL Direct 39 mg/dL; Potassium 4.2 mmol/L (3.4-5.0); Sodium 141 mmol/L (137-145); Triglycerides 135 mg/dL (<150)
[2023-12-31 14:53] LABS: Add Urine Microscopic? NO
[2023-12-31 15:02] LABS: LDL Cholesterol Direct 79 mg/dL
[2023-12-31 15:33] LABS: Hemoglobin A1C 5.2 % (<5.7)
[2023-12-31 16:20] LABS: Free T4 Free Thyroxine 0.75 ng/mL (0.78-2.19); Vitamin D 25 Hydroxy 34.5 ng/mL
== END 2023-12-31 14:15 | disposition home or self-care (01) ==
PROVIDERS: PCP Internal Medicine; Visit Provider Internal Medicine
DX: E78.2 Mixed hyperlipidemia (principal); I10 Essential (primary) hypertension; E55.9 Vitamin D deficiency, unspecified; Z79.899 Other long term (current) drug therapy; Z13.1 Encounter for screening for diabetes mellitus; Z13.29 Encounter for screening for other suspected endocrine disorder
CPT/HCPCS: 36415; 80053; 80061; 81003; 82306; 83036; 84439; 84443; 85025

== ENCOUNTER 2024-05-13 14:00 | Outpatient (CLI) | payer MEDICARE, SELFPAY ==
[2024-05-13 14:39] LABS: Anion Gap 11 mmol/L (4-12); Blood Urea Nitrogen 14 mg/dL (9-20); Calcium 9.1 mg/dL (8.4-10.2); Carbon Dioxide 23 mmol/L (22-30); Chloride 106 mmol/L (98-107); Cholesterol 128 mg/dL (0-200); Estimated Glomerular Filt Rate > 60; Glucose 112 mg/dL (65-110); HDL Direct 40 mg/dL; Potassium 4.1 mmol/L (3.4-5.0); Sodium 140 mmol/L (137-145); Triglycerides 185 mg/dL (<150)
[2024-05-13 14:49] LABS: LDL Cholesterol Direct 75 mg/dL
[2024-05-13 15:07] LABS: Free T4 Free Thyroxine 0.84 ng/mL (0.78-2.19)
== END 2024-05-13 14:01 | disposition home or self-care (01) ==
LOC: ANHLAB 14:04
PROVIDERS: PCP Internal Medicine; Visit Provider Internal Medicine
DX: E78.2 Mixed hyperlipidemia (principal); I10 Essential (primary) hypertension; Z79.899 Other long term (current) drug therapy; Z13.29 Encounter for screening for other suspected endocrine disorder
CPT/HCPCS: 36415; 80048; 80061; 84439; 84443

== ENCOUNTER 2024-09-28 14:39 | Outpatient (CLI) | payer MEDICARE, SELFPAY ==
[2024-09-28 15:04] LABS: Anion Gap 5 mmol/L (4-12); Blood Urea Nitrogen 18 mg/dL (9-20); Calcium 9.2 mg/dL (8.4-10.2); Carbon Dioxide 29 mmol/L (22-30); Chloride 108 mmol/L (98-107); Cholesterol 141 mg/dL (0-200); Estimated Glomerular Filt Rate > 60; Glucose 103 mg/dL (65-110); HDL Direct 41 mg/dL; Sodium 142 mmol/L (137-145); Triglycerides 182 mg/dL (<150)
[2024-09-28 15:15] LABS: LDL Cholesterol Direct 66 mg/dL
== END 2024-09-28 14:40 | disposition home or self-care (01) ==
LOC: ANHLAB 14:41
PROVIDERS: PCP Internal Medicine; Visit Provider Internal Medicine
DX: E55.9 Vitamin D deficiency, unspecified (principal); E78.2 Mixed hyperlipidemia; I10 Essential (primary) hypertension
CPT/HCPCS: 36415; 80048; 80061; 82306

== ENCOUNTER 2025-02-07 14:54 | Outpatient (CLI) | payer MEDICARE, SELFPAY ==
[2025-02-07 15:29] LABS: Basophils Percent Auto 0.7 % (0.2-1.2); Eosinophils Absolute Auto 0.3 K/mm3 (0-0.3); Eosinophils Percent Auto 5.5 % (0-4.4); Hemoglobin 14.6 g/dL (14.0-18.0); Immature Granulocyte Absolute 0.01 K/mm3 (0.00-0.031); Immature Granulocyte Percent A 0.2 % (0-0.5); Lymphocytes Absolute Auto 1.45 K/mm3 (0.9-3.2); Lymphocytes Percent Auto 26.8 % (18.3-44.2); Mean Corpuscular HGB Conc 32.4 g/dl (32-36); Mean Corpuscular Volume 92.4 fl (80-100); Monocytes Absolute Auto 0.6 K/mm3 (0.1-0.6); Monocytes Percent Auto 10.7 % (2.6-8.5); Neutrophils Percent Auto 56.1 % (45.5-73.1); Platelet Count Result 199 k/mm3 (150-375); Red Blood Count 4.87 M/mm3 (4.6-6.20); Red Cell Distribution Width 12.9 % (11.5-14.5); White Blood Count 5.4 K/mm3 (4.5-10.0)
[2025-02-07 15:44] LABS: Alanine Aminotransferase 23 U/L (6-50); Albumin Level 4.3 g/dL (3.5-5.1); Alkaline Phosphatase 71 U/L (38-126); Anion Gap 10 mmol/L (4-12); Aspartate Amino Transferase 21 U/L (17-59); Bilirubin,Total 0.4 mg/dL (0.2-1.3); Blood Urea Nitrogen 18 mg/dL (9-20); Calcium 9.2 mg/dL (8.4-10.2); Carbon Dioxide 24 mmol/L (22-30); Chloride 109 mmol/L (98-107); Cholesterol 131 mg/dL (0-200); Estimated Glomerular Filt Rate > 60; Glucose 94 mg/dL (65-110); HDL Direct 41 mg/dL; Potassium 4.2 mmol/L (3.4-5.0); Sodium 143 mmol/L (137-145); Triglycerides 140 mg/dL (<150)
[2025-02-07 15:52] LABS: Hemoglobin A1C 5.2 % (<5.7)
[2025-02-07 15:55] LABS: LDL Cholesterol Direct 66 mg/dL
[2025-02-07 16:00] LABS: Free T4 Free Thyroxine 0.83 ng/dL (0.78-2.19); Vitamin D 25 Hydroxy 38.2 ng/mL
--- OUTSIDE RECORDS SUMMARY | 2025-02-07 16:49 | XMS_ITS ---
Author Name Chato Hankins Address [address] [place] [address] Phone [phone] Organization [facility] ice Address [address] [place] [address] Phone [phone] Care Team Providers Care Humid System Operator Name Role Phone Chato Hankins Unavailable [phone] Functional Status No Results Mental Status No Results Allergies and Intolerances No Known Allergies Encounters Program Name Primary Diagnosis Admission Date/Time Dis charge Date/Time Rehabilitation [facility] FriOct 14 19:00:00 EST 2023Nov 29 18:59:00 EST 2024 [employer] [facility] Longterm[facility] Term [facility] Unit FriMay 06 20:00:00 EDT 2021 Problems Active Concerns * Dorsalgia, unspecified* Code: * Start Date: FriOct 15 00:00:00 EST 2023 * End Date: * Text: * Weakness* Code: * Start Date: FriOct 15 00:00:00 EST 2023 * End Date: * Text: * Other low back pain* Code: * Start Date: FriOct 15 00:00:00 EST 2023 * End Date: * Text: Reason for Referral
--- OUTSIDE RECORDS SUMMARY | 2025-02-07 16:49 | XMS_ITS | Referral Summary ---
Author Organization [facility] Address [address] [place] [address] Care Team Providers Care Rectification Printer Name Role Phone Chato Hankins MD Primary Care Provider [phone] Geremias Vitale MD Unavailable [phone] Allergies No known active allergies Medications aspirin 81 MG oral suspension 5 Active atorvastatin (LIPITOR) 20 mg tablet TK 1 T PO QD 0 Active buPROPion XL (WELLBUTRIN XL) 150 mg 24 hr tablet TK 1 T PO QAM 0 Active calcium citrate-vitamin D3 1,000 mg-400 unit/30 mL liquid 9 Active cholecalciferol (VITAMIN D-3) 1,000 unit capsule 9 Active fish,bora,flax oils-om3,6,9no1 1,200 mg capsule 5 Active primidone (MYSOLINE) 50 mg tablet TK 2 TS PO TID 0 Active trandolapriL (MAVIK) 2 mg tablet TK 2 TS PO QD 0 Active verapamil SR (CALAN SR) 240 mg CR tablet TK 2 TS PO D WF 0 Active vit C/E/Zn/coppr/tomer tein/zeaxan (PRESERVISION AREDS-2 ORAL) 7 Active docusate sodium (COLACE) 100 mg capsule Take 1 capsule (100 mg total) by mouth 2 (two) times a day 3 Active HYDROcodone-harpal taminophen (NORCO) 5-325 mg per tablet Take by mouth every 6 (six) hours as needed 3 Active hydrocortisone (ANUSOL-HC) 2.5 % rectal cream APPLY RECTALLY TO THE AFFECTED AREA DAILY NEEDED FOR HEMORRHOIDS 3 Active cyanocobalamin (Vitamin B-12) 1,000 mcg/mL injection Active Active Problems Problem Noted Date Diagnosed Date Lung nodule 02/15/2022 Abdominal aortic aneurysm (AAA) without rupture 05/17/2020 Assessment & Plan (03/11/2024 8:58 AM CDT): Impression: Patient is status post endovascular repair of AAA. He remains asymptomatic. CT of abdomen and pelvis reveals a stable [place] aneurysms sac measuring 5.2 cm with a patent endograft repair with no endoleaks. Plan: Continue ongoing risk factor modifications. -patient to follow-up in 1 year for re-evaluation an abdominal duplex. Assessment & Plan (07/19/2020 11:49 AM CDT): Impression: Patient recover well status post endovascular repair of his large saccular abdominal aortic aneurysm. Postoperative surveillance CTA revealed a patent endo graft repair with no evidence of stent migration with a small type 2 endoleak from the inferior mesenteric artery. Stable [place] aneurysm sac with no evidence of enlargement. Plan: Recommend ongoing risk factor modifications and follow-up in 6 months for re-evaluation and repeat CTA abdomen pelvis surveillance. Assessment & Plan (05/17/2020 3:51 PM CDT): 5.1 cm AAA. Endovascular repair planned by vascular surgery. Assessment & Plan (05/17/2020 11:35 AM CDT): Patient has a large 5.1 cm saccular infrarenal abdominal aortic aneurysm. Based upon the the saccular makeup of the aneurysm and size I have recommended stent graft repair. Natural history of this type aneurysm is unknown. The procedure and all associated risks including but not limited to access site thrombosis, distal embolization, need for emergent arterial reconstruction, kidney disease, visceral ischemia limb lossBased upon the morphology I recommended stent graft repair. I do not believe this to be secondary to an infectious etiology. The procedure cardiopulmonary complications and were explained in detail. He understands and agrees to proceed Diarrhea 05/17/2020 Assessment & Plan (05/17/2020 3:50 PM CDT): For the last 6 weeks. Assessment & Plan (05/17/2020 11:33 AM CDT): Patient has diarrhea currently undergoing workup and schedule to see gastroenterology. Will proceed with aneurysm repair unless new diagnosis would prohibit or preclude us for moving forward. Mixed hyperlipidemia 05/17/2020 Assessment & Plan (03/11/2024 8:58 AM CDT): Impression: Chronic and stable. Plan: Continue atorvastatin. Assessment & Plan (05/17/2020 3:49 PM CDT): Low-fat low-cholesterol diet. Atorvastatin 20 mg bedtime daily. Assessment & Plan (05/17/2020 11:33 AM CDT): Patient states cholesterol levels are controlled he is tolerating statin therapy continue per PCP Essential hypertension 05/17/2020 Assessment & Plan (03/11/2024 9:00 AM CDT): Impression: Chronic and stable. Plan: Continue trandolapril, verapamil Assessment & Plan (05/17/2020 3:50 PM CDT): Blood pressure 100/60. Salt restriction. Continue the current regimen. Medications can be adjusted downwards to let the blood pressure come up some. So long as the blood pressure stays below 130/80. Abnormal EKG 05/17/2020 Assessment & Plan (05/17/2020 3:52 PM CDT): Had EKG shows normal sinus rhythm, first-degree AV block, ST changes. Will obtain echo Doppler to assess the left ventricular systolic function. Lexiscan stress test to look for myocardial ischemia. No treadmill stress test because of the large abdominal aortic aneurysm. Hemorrhage of rectum and anus 12/09/2014 Feces contents abnormal 12/09/2014 Internal hemorrhoids with complication 5 External hemorrhoids 12/09/2014 Immunizations Immunization Administration Dates Next Due Influenza, Quadrivalent, Hig h Dose, Preservative Free, Intrr 06/20/2020 Influenza, Trivalent, Adjuva nted, Intramuscular 07/28/2019,08/10/2017 Influenza, Trivalent, High D ose, Split, Preservative Free, Intramuscular 07/29/2018,08/07/2016,07/31/2015,07/20 Influenza, Trivalent, IM (MDV) 08/05/2013 Influenza, Unspecified 08/10/2012 Tdap 09/08/2015 ZOSTER Recombinant 06/20/2020 Social History Tobacco Use Types Packs/Day Years Used Date Smoking Tobacco: Former Tobacco Cessation:Counseling Given: Not Answered Alcohol Use Standard Drinks/Week Comments Yes 0 (1 standard drink = 0.6 oz pur e alcohol) Personal Safety Answer Date Recorded Getting School Help Needed Not on file 12/26 Sex and Gender Information Value Date Recorded Sex Assigned at Not on file 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 Gender Identity Male 05/16/2020 11:46 AM CDT Sexual Orientation Straight 05/16/2020 11 :46 AM CDT Last Filed Vital Signs Vital Sign Reading Time Taken Comments Blood Pressure 102/56 03/10/2024 1:01 PM CDT Pulse 65 03/10/2024 1:01 PM CDT Temperature 37 C (98.6 F) 05/29/2020 12:19 PM CDT Respiratory Rate - - Oxygen Saturation 94% 05/29/2020 12:19 PM CDT Inhaled Oxygen Concentration - - Weight 96.6 kg (213 lb) 03/10/2024 1:01 PM CDT Height 180.3 cm (5' 11 ) 03/10/2024 1:01 PM CDT Body Mass Index 29.71 03/10/2024 1:01 PM CDT Plan of Treatment Not on file Insurance MEDICARE [facility] MEDICARE [facility] Advance Directives For more information, please contact: [phone] Documents on File Type Date Recorded Patient Oracle Dba Expl anation ADVANCE DIRECTIVE 05/22/2020 12:00 AM WILTON NG WILL ADVANCE DIRECTIVE 05/22/2020 12:00 AM AJ R OF COMPUTER SCIENCE PROFESSOR FINANCIAL/MEDICAL Care Teams Rectification Printer Relationship Specialty Start Date End Date Chato Hankins MD [address] [place] [address] PCP - General Internal Medicine 05/16/20 Geremias Vitale MD [address] [place] [address] Surgeon Vascular Surgery 03/03/23
--- OUTSIDE RECORDS SUMMARY | 2025-02-07 16:49 | XMS_ITS | Clinical Summary ---
Author Organization [facility] Address [address] [place] [address] Care Team Providers Care Golf Course Mechanic Name Role Phone Chato Hankins MD Primary Care Provider [phone] Geremias Vitale MD Unavailable [phone] Allergies No known active allergies Medications [...] of abdomen and pelvis reveals a stable [place] aneurysms sac measuring 5.2 cm with a [...] endoleak from the inferior mesenteric artery. Stable [place] aneurysm sac with no evidence of enlargement. 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 [employer] Gender Identity Male 05/16/2020 11:46 AM CDT Sexual Orientation Straight 05/16/2020 11 :46 AM CDT Obstetrics History Last Filed Vital Signs Vital Sign Reading [...] 03/10/2024 1:01 PM CDT Plan of Treatment Health Maintenance Due Date Last Done Comments Depression Screening 1941 Fall Risk Assessment 1941 Hepatitis B Screening 1959 Pneumococcal vaccine 65+ (1 of 1 - PCV) 1991 Well Visit 65+ 2006 Zoster Vaccine (2 of 2) 08/15/2020 06/20/2020 Influenza Vaccine (#1) 2024 0, 07/28/2019, 07/29/2018, Additional history exists DTaP/Tdap/Td Vaccine (2 - Td or Tdap) 09/08/2025 09/08/2015 Insurance MEDICARE [facility] MEDICARE [facility] Advance Directives For more information, please contact: [phone] Documents on File Type Date Recorded Patient Purchasing Clerk Expl anation ADVANCE DIRECTIVE 05/22/2020 12:00 AM WILTON NG WILL ADVANCE DIRECTIVE 05/22/2020 12:00 AM AJ R OF BATH DESIGN SALES CONSULTANT FINANCIAL/MEDICAL Care Teams Golf Course Mechanic Relationship Specialty Start Date End Date Chato Hankins MD [address] [facility] [address] [place] [address] PCP - General Internal Medicine 05/16/20 Geremias Vitale MD [address] [place] [address] Surgeon Vascular Surgery 03/03/23
--- OUTSIDE RECORDS SUMMARY | 2025-02-07 16:49 | XMS_ITS | Continuity of Care Document ---
Author Organization [facility] Address [address] [place] [address] [address] [place] [address] Phone Care Team Providers Care Otr Owner Operator Name Role Phone Lisa Sheffield Unavailable Unavailable Advance Directives Directive Yes / No Effective Date File Name No Information Encounters Encounter Description Practice Location Reason(s) For Visit Diagnoses Date Provider Providers Copied on Encounter [facility], [address], [place], [place], [id number], [place] tel:[phone] [facility] No Information [address] Nettie Gonzalez. [address] , [address], [place], [address], [place]. tel:[phone] Family History Family Member Type Diagnosis Age At Onset No Information Payers Payer name Insurance type Covered libertarian ID Authoriza tion(s) No Information Social History [...]
== END 2025-02-07 14:55 | disposition home or self-care (01) ==
PROVIDERS: PCP Internal Medicine; Visit Provider Internal Medicine
DX: E55.9 Vitamin D deficiency, unspecified (principal); I10 Essential (primary) hypertension; E78.2 Mixed hyperlipidemia; Z13.29 Encounter for screening for other suspected endocrine disorder; Z13.1 Encounter for screening for diabetes mellitus; Z79.899 Other long term (current) drug therapy
CPT/HCPCS: 36415; 80053; 80061; 82306; 83036; 84439; 84443; 85025

== ENCOUNTER 2025-06-20 14:53 | Outpatient (CLI) | payer MEDICARE, SELFPAY ==
--- OUTSIDE RECORDS SUMMARY | 2006-06-17 10:45 | XMS_ITS | Continuity of Care Document ---
Author Organization [facility] Address [address] [place] [address] [address] [place] [address] Phone Care Team Providers Care Consumer Experience Consultant Name Role Phone Lisa Sheffield Unavailable Unavailable Advance Directives Directive Yes / No Effective Date File Name No Information Encounters Encounter Description Practice Location Reason(s) For Visit Diagnoses Date Provider Providers Copied on Encounter [facility], [address], [place], [place], [id number], [place] tel:[phone] [facility] No Information 2-[address] Nettie Gonzalez. [address] , [address], [place], [address], [place]. tel:[phone] Family History Family Member Type Diagnosis Age At Onset No Information Payers Payer name Insurance type Covered republican ID Authoriza tion(s) No Information Social History Type Description Quantity Date Captured Comments Sex Male Smoking Status No Information Chief Complaint And Reason For Visit No Information Reason For Referral Reason For Referral No Information History Of Present Illness Encounter Date Complaint History Of Prese nt Illness No Information Functional Status Date Functional Assessmen t No Information Instructions Date Instruction Additional Infor mation No Information Assessments Type Assessment Date No Information Patient Care Teams Name Effective Dates (start - stop) Status Members No Information
--- OUTSIDE RECORDS SUMMARY | 2025-06-20 15:07 | XMS_ITS ---
Author Name Auto Generated, Auto Generated Organization [facility] ices Address [address] [place] [address] Phone [phone] Care Team Providers Care Swine Genetics Researcher Name Role Phone Chato Hankins Unavailable [phone] Functional Status No Results Mental Status No Results Allergies and Intolerances No Known Allergies Encounters Program Name Primary Diagnosis Admission Date/Time Dis charge Date/Time [facility] FriMay 06 20:00:00 EDT 2021 Rehabilitation Clinic FriOct 14 19:00:00 EST 2023Nov 29 18:59:00 EST 2024 Problems Active Concerns * Dorsalgia, unspecified* Code: [...]
--- OUTSIDE RECORDS SUMMARY | 2025-06-20 15:07 | XMS_ITS ---
Author Name Auto Generated, Auto Generated Organization [facility] ices Address [address] [place] [address] Phone [phone] Care Team Providers Care Ventilation Mechanic Name Role Phone Chato Hankins Unavailable [phone] Functional Status No Results Mental Status No Results Allergies and Intolerances No Known Allergies Encounters Program Name Primary Diagnosis Admission Date/Time Dis charge Date/Time Sn[facility] Care Facility Intermediate-Short Term Rehabilitation Unit FriMay 06 20:00:00 EDT [...]
--- OUTSIDE RECORDS SUMMARY | 2025-06-20 15:08 | XMS_ITS | Clinical Summary ---
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 [...] hemorrhoids with complication 5 External hemorrhoids 12/09/2014 Encounters Date Type Department Care Team Description 04/14/2025 2:00 PM CDT Ancillary Procedure [facility] at [address] [place] [phone] Popliteal artery aneurysm, bilateral 04/14/2025 2:00 PM CDT Ancillary Procedure [facility] Surgery at [address] [place] [phone] Popliteal artery aneurysm, bilateral 04/08/2025 Orders Only [facility] [address] [facility] [address] [place] [address] Geremias Vitale MD Popliteal artery aneurysm, bilateral (Primary Dx) from Last 3 Months Immunizations Immunization Administration Dates Next Due Influenza, [...] drink = 0.6 oz pur e alcohol) Sex and Gender Information Value Date Recorded Sex Assigned at Not on file Legal Sex Male 2:48 AM ICU RN Gender Identity Male 05/16/2020 11:46 AM CDT Sexual Orientation Straight 05/16/2020 11 :46 AM CDT Obstetrics History Last Filed Vital Signs Vital Sign Reading Time Taken Comments Blood Pressure 132/71 03/16/2025 9:46 AM CDT Pulse 67 03/16/2025 9:46 AM CDT Temperature 37 C (98.6 F) 05/29/2020 12:19 PM CDT Respiratory Rate 18 03/16/2025 9:46 AM CDT Oxygen Saturation 97% 03/16/2025 9:46 AM CDT Inhaled Oxygen Concentration - - Weight 96.6 kg (213 lb) 03/16/2025 9:46 AM CDT Height 180.3 cm (5' 11) 03/16/2025 9:46 AM CDT Body Mass Index 29.71 03/16/2025 9:46 AM CDT Plan of Treatment Health Maintenance Due Date Last Done Comments Depression Screening 1940 Fall Risk Assessment 1940 Hepatitis B Screening 1959 Pneumococcal vaccine 65+ (1 of 1 - PCV) 1991 Well Visit 65+ 2006 Zoster Vaccine (2 of 2) 08/15/2020 06/20/2020 Influenza Vaccine (#1) 2025 0, 07/28/2019, 07/29/2018, Additional history exists DTaP/Tdap/Td Vaccine (2 - Td or Tdap) 09/08/2025 09/08/2015 Procedures Procedure Name Priority Date/Time Associated Diagnosis Comments VL US ARTERIAL DUPLEX LOWER EXTREMITY BILATERAL Schedule Routine, Read Routine (OP Routine) 04/14/2025 2:42 PM CDT Popliteal artery aneurysm, bilateral US CRISTIAN Schedule Routine, Read Routine (OP Routine) 04/14/2025 2:42 PM CDT Popliteal artery aneurysm, bilateral from Last 3 Months Results * US Arterial Duplex Lower Extremity Bilateral (04/14/2025 2:42 PM CDT) Anatomical Region Laterality Modality Vascular Bilateral Ultrasound 04/14/2025 1:53 PM CDT Narrative 04/18/2025 9:58 AM CDT Vascular & Vein Surgery [address] [place] [address] Lower Extremity Arterial Duplex Report Patient Name: GIUSEPPECONNOR C : 1940 (84y 4m) Gender: M Study Date: 04/14/2025 01:53:50 PM Ht(Inch): Wt(Lb): BSA: Chairman & Ceo: Location: [facility] Order Provider: GEREMIAS VITALE Quality: Adequate Ref Provider: GEREMIAS VITALE PROCEDURES: Arterial Report: A non-invasive vascular imaging study of the bilateral lower extremity arteries was performed using B-mode ultrasound, color flow, and spectral Doppler. Limited study due to rule out popliteal aneurysm. INDICATIONS: Pulsatile mass Rt popliteal fossa. HISTORY: HTN. HLD. AAA S/P EVAR 05/29/2020. Former smoker. COMPARISONS: No previous exams. MEASUREMENTS: Right Value Left Value Rt FIREMAN Dst PSV 115.00 cm/sec Lt FIREMAN Dst PSV 105.00 cm/sec Rt Pop Prx PSV 83.00 cm/sec Lt Pop Prx PSV 47.00 cm/sec Rt Pop Dst PSV 71.00 cm/sec Lt Pop Dst PSV 69.00 cm/sec FINDINGS: Right: Triphasic arteries include the right common femoral artery and popliteal artery. Normal velocities noted of the right common femoral artery and popliteal artery. Right common femoral artery measures 1.28 x 1.18 cm. Right popliteal artery measures 0.95 x 0.96 cm proximal, 0.87 x 0.75 cm distal. Left: Triphasic arteries include the left common femoral artery. Biphasic arteries include the left popliteal artery. Normal velocities noted of the left common femoral artery and popliteal artery. Left common femoral artery measures 1.31 x 1.14 cm. Left popliteal artery measures 1.05 x 1.0 cm proximal, 0.87 x 0.88 cm distal. CONCLUSION: 1. No evidence of stenosis in the right common femoral or popliteal artery. 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 No popliteal aneurysm. 2. Triphasic left common femoral and popliteal artery, no evidence of stenosis. Left common femoral artery aneurysms measuring 1.3 cm and left popliteal artery aneurysm measuring 1.1 cm. ATTESTATION: I have reviewed and interpreted the pertinent images and measurements of this study. I attest to the conclusions in the final report that is provided above. Electronically Signed By: Matt Vitale MD 04/18/2025 9:55:50 AM CDT Procedure Note Matt Vitale MD - 04/18/2025 Vascular & Vein Surgery [address] [place] [id number] Lower Extremity Arterial Duplex Report Patient Name: CONNOR CHIN C : 1940 (84y 4m) Gender: M Study Date: 04/14/2025 01:53:50 PM Ht(Inch): Wt(Lb): BSA: Chairman & Ceo: Location: [facility] Order Provider: GEREMIAS VITALE Quality: Adequate Ref Provider: GEREMIAS VITALE PROCEDURES: Arterial Report: A non-invasive vascular imaging study of the bilaterallower extremity arteries was performed using B-mode ultrasound, color flow, and spectralDoppler. Limited study due to rule out popliteal aneurysm. INDICATIONS: Pulsatile mass Rt popliteal fossa. HISTORY: HTN. HLD. AAA S/P EVAR 05/29/2020. Former smoker. COMPARISONS: No previous exams. MEASUREMENTS: Right Value Left Value Rt FIREMAN Dst PSV 115.00 cm/sec Lt FIREMAN Dst PSV 105.00 cm/sec Rt Pop Prx PSV 83.00 cm/sec Lt Pop Prx PSV 47.00 cm/sec Rt Pop Dst PSV 71.00 cm/sec Lt Pop Dst PSV 69.00 cm/sec FINDINGS: Right: Triphasic arteries include the right common femoral artery andpopliteal artery. Normal velocities noted of the right common femoral artery and poplitealartery. Right common femoral artery measures 1.28 x 1.18 cm. Right popliteal arterymeasures 0.95 x 0.96 cm proximal, 0.87 x 0.75 cm distal. Left: Triphasic arteries include the left common femoral artery. Biphasicarteries include the left popliteal artery. Normal velocities noted of the leftcommon femoral artery and popliteal artery. Left common femoral artery measures 1.31 x1.14 cm. Left popliteal artery measures 1.05 x 1.0 cm proximal, 0.87 x 0.88 cm distal. CONCLUSION: 1. No evidence of stenosis in the right common femoral or poplitealartery. 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 No popliteal aneurysm. 2. Triphasic left common femoral and popliteal artery, no evidence ofstenosis. Left common femoral artery aneurysms measuring 1.3 cm and left popliteal arteryaneurysm measuring 1.1 cm. ATTESTATION: I have reviewed and interpreted the pertinent images and measurements ofthis study. I attest to the conclusions in the final report that is provided above. Electronically Signed By: Matt Vitale MD 04/18/2025 9:55:50 AM CDT us Geremias Vitale MD IMG US PROCEDURES Final Re sult * US CRISTIAN (04/14/2025 2:42 PM CDT) Anatomical Region Laterality Modality Vascular N/A Ultrasound 04/14/2025 1:51 PM CDT Narrative 04/18/2025 9:58 AM CDT Vascular & Vein Surgery [address] [facility] [place] [address] Lower Extremity Arterial Doppler Report Patient Name: CONNOR CHIN C : 1940 Study Date: 04/14/2025 1:51:00 PM Gender: M Chairman & Ceo: Hailee Chavez RVNarcisa Location: [facility] Ref Provider: GEREMIAS VITALE Quality: Adequate Order Provider: GEREMIAS VITALE PROCEDURES: Arterial Report: Ankle - Brachial Index Doppler exam. INDICATIONS: I72.4 Aneurysm of artery of lower extremity. HISTORY: HTN. HLD. AAA S/P EVAR 05/29/2020. Former smoker. COMPARISONS: No previous exams. MEASUREMENTS: Right Value Left Value Rt Brachial Pressure 178 mmHg Lt Brachial Pressure 165 mmHg Rt REMOTE RECRUITER Pressure 208 mmHg Lt REMOTE RECRUITER Pressure 199 mmHg Rt DPA Pressure 202 mmHg Lt DPA Pressure 187 mmHg Rt PT CRISTIAN Resting 1.17 Lt PT CRISTIAN Resting 1.12 Rt DP CRISTIAN Resting 1.13 Lt DP CRISTIAN Resting 1.05 FINDINGS: Right Posterior Tibial Artery Analysis: The posterior tibial waveform is triphasic. Right Anterior Tibial Artery Analysis: The anterior tibial waveform is triphasic. Left Posterior Tibial Artery Analysis: The posterior tibial waveform is triphasic. Left Anterior Tibial Artery Analysis: The anterior tibial waveform is triphasic. CONCLUSIONS: 1. Ankle-brachial index of 0.9-1.3 is within normal limits in the bilateral lower extremities. ATTESTATION: I have reviewed and interpreted the pertinent images and measurements of this study. I attest to the conclusions in the final report that is provided above. Electronically Signed By: Matt Vitale MD 04/18/2025 9:45:43 AM CDT Procedure Note Matt Vitale MD - 04/18/2025 [facility] Ve[facility] Surgery [address] [place] [id number] Lower Extremity Arterial Doppler Report Patient Name: CONNOR CHIN C : 1940 Study Date: 04/14/2025 1:51:00 PM Gender: M Chairman & Ceo: Hailee Chavez Narcisa Location: [facility] Ref Provider: GEREMIAS VITALE Quality: Adequate Order Provider: GEREMIAS VITALE PROCEDURES: Arterial Report: Ankle - Brachial Index Doppler exam. INDICATIONS: I72.4 Aneurysm of artery of lower extremity. HISTORY: HTN. HLD. AAA S/P EVAR 05/29/2020. Former smoker. COMPARISONS: No previous exams. MEASUREMENTS: Right Value Left Value Rt Brachial Pressure 178 mmHg Lt Brachial Pressure 165 mmHg Rt REMOTE RECRUITER Pressure 208 mmHg Lt REMOTE RECRUITER Pressure 199 mmHg Rt DPA Pressure 202 mmHg Lt DPA Pressure 187 mmHg Rt PT CRISTIAN Resting 1.17 Lt PT CRISTIAN Resting 1.12 Rt DP CRISTIAN Resting 1.13 Lt DP CRISTIAN Resting 1.05 FINDINGS: Right Posterior Tibial Artery Analysis: The posterior tibial waveform is triphasic. Right Anterior Tibial Artery Analysis: The anterior tibial waveform is triphasic. Left Posterior Tibial Artery Analysis: The posterior tibial waveform is triphasic. Left Anterior Tibial Artery Analysis: The anterior tibial waveform is triphasic. CONCLUSIONS: 1. Ankle-brachial index of 0.9-1.3 is within normal limits in thebilateral lower extremities. ATTESTATION: I have reviewed and interpreted the pertinent images and measurements ofthis study. I attest to the conclusions in the final report that is provided above. Electronically Signed By: Matt Vitale MD 04/18/2025 9:45:43 AM CDT us Geremias Vitale MD IMG US PROCEDURES Final Re sult from Last 3 Months Insurance MEDICARE [facility] MEDICARE SUPPLEMENT BLUE CROSS MEDICARE SUPPLEMENT Advance Directives For more information, please contact: [phone] Documents on File Type Date Recorded Patient Coffee Shop Aide Expl anation ADVANCE DIRECTIVE 05/22/2020 12:00 AM [facility] NG WILL ADVANCE DIRECTIVE 05/22/2020 12:00 AM AJ R OF [employer] FINANCIAL/MEDICAL Care Teams Water Purifier Relationship Specialty Start Date End Date Chato Hankins MD [address] [facility] [address] [place] [address] PCP - General Internal Medicine 05/16/20 Gereimas Vitale MD [address] [facility] [address] [facility] [address] [place] [address] Surgeon Vascular Surgery 03/03/23
[2025-06-20 15:40] LABS: Hematocrit 46.1 % (42.0-52.0); Hemoglobin 14.9 g/dL (14.0-18.0); Immature Granulocyte Percent A 0.3 % (0-0.5); Lymphocytes Absolute Auto 1.56 K/mm3 (0.9-3.2); Mean Corpuscular HGB Conc 32.3 g/dl (32-36); Mean Corpuscular Hemoglobin 30.2 pg (26-34); Mean Corpuscular Volume 93.5 fl (80-100); Nucleated Red Blood Cells Absolute Auto 0.000 K/mm3 (0.0-0.012); Nucleated Red Blood Cells Perc 0.0 % (0.0-0.2); Platelet Count Result 200 k/mm3 (150-375); Red Blood Count 4.93 M/mm3 (4.6-6.20); White Blood Count 6.2 K/mm3 (4.5-10.0)
[2025-06-20 16:04] LABS: Anion Gap 9 mmol/L (4-12); Blood Urea Nitrogen 22 mg/dL (9-20); Calcium 9.5 mg/dL (8.4-10.2); Carbon Dioxide 25 mmol/L (22-30); Chloride 106 mmol/L (98-107); Cholesterol 155 mg/dL (0-200); Estimated Glomerular Filt Rate > 60; Glucose 100 mg/dL (65-110); HDL Direct 42 mg/dL; Potassium 4.6 mmol/L (3.4-5.0); Sodium 140 mmol/L (137-145); Triglycerides 176 mg/dL (<150)
[2025-06-20 16:20] LABS: Free T4 Free Thyroxine 0.79 ng/dL (0.78-2.19)
[2025-06-20 16:32] LABS: Hemoglobin A1C 5.0 % (<5.7)
[2025-06-20 16:37] LABS: Thyroid Stimulating Hormone 2.370 uIU/mL (0.465-4.680)
== END 2025-06-20 14:54 | disposition home or self-care (01) ==
LOC: ANHLAB 14:54
PROVIDERS: PCP Internal Medicine; Visit Provider Internal Medicine
DX: E78.2 Mixed hyperlipidemia (principal); I10 Essential (primary) hypertension; R73.9 Hyperglycemia, unspecified; Z13.29 Encounter for screening for other suspected endocrine disorder; Z79.899 Other long term (current) drug therapy
CPT/HCPCS: 36415; 80048; 80061; 83036; 84439; 84443; 85025